=== PATIENT | female | born 1960 | race Caucasian/White ===

== ENCOUNTER 2019-01-07 18:33 | Emergency (ER) | payer OTHER ==
[~2019-01-07] VITALS: Ht 165.1 cm; Wt 68.0 kg
[2019-01-07] MEDS ORDERED: RESTORIL7.5 MG (18:57)
[2019-01-07] MEDS ORDERED: PROZAC20 MG (18:57)
[2019-01-07] MEDS ORDERED: ZESTRIL10 M1 (18:57)
[2019-01-07] MEDS ORDERED: TRAZODONE HCL100 MG (18:58)
[2019-01-07] MEDS ORDERED: SEROQUEL200 MG (18:58)
[2019-01-07] MEDS ORDERED: VISTARIL25 MG (18:58)
[2019-01-07] MEDS ORDERED: CLONAZEPAM2 MG PO (21:49)
[2019-01-07] MEDS ORDERED: LISINOPRIL10 MG PO (21:49)
[2019-01-07] MEDS ORDERED: SKELAXIN800 MG PO (21:49)
[2019-01-07] MEDS ORDERED: VOLTAREN-XR100 MG PO (21:53)
== END 2019-01-07 21:57 ==
LOC: ER 18:33
DX: G43.119 Migraine with aura, intractable, without status migrainosus (principal); F41.1 Generalized anxiety disorder

== ENCOUNTER 2021-02-14 19:52 | Emergency (ER) | payer OTHER ==
[~2021-02-14] VITALS: Ht 165.1 cm; Wt 74.8 kg
[~2021-02-14 19:52] MED LIST: CLONAZEPAM2 MG PO; LISINOPRIL10 MG PO; PROZAC20 MG; RESTORIL7.5 MG; SEROQUEL200 MG; SKELAXIN800 MG PO; TRAZODONE HCL100 MG; VISTARIL25 MG; VOLTAREN-XR100 MG PO; ZESTRIL10 M1
[2021-02-14] MEDS ORDERED: PROZAC20 MG (20:04)
[2021-02-15] MEDS ORDERED: CIPRO500 MG PO (04:33)
[2021-02-15] MEDS ORDERED: PEPCID40 MG PO (04:33)
[2021-02-15] MEDS ORDERED: INTESTINEX680 M1 PO (04:33)
[2021-02-15] MEDS ORDERED: MOBIC15 MG PO (04:33)
== END 2021-02-15 04:58 | disposition home or self-care (01) ==
LOC: ER 19:52
DX: N39.0 Urinary tract infection, site not specified (principal); Z03.818 Encounter for observation for suspected exposure to other biological agents ruled out

== ENCOUNTER 2021-02-20 14:44 | Emergency (ER) | payer OTHER ==
[~2021-02-20] VITALS: Ht 165.1 cm; Wt 74.8 kg
[~2021-02-20 14:44] MED LIST changes: +CIPRO500 MG PO; +INTESTINEX680 M1 PO; +MOBIC15 MG PO; +PEPCID40 MG PO
== END 2021-02-20 17:17 | disposition home or self-care (01) ==
LOC: ER 14:44
DX: M54.89 Other dorsalgia (principal)

== ENCOUNTER 2021-10-08 15:20 | Emergency (ER) | payer OTHER ==
[~2021-10-08] VITALS: Ht 165.1 cm; Wt 65.3 kg
== END 2021-10-08 17:10 | disposition home or self-care (01) ==
LOC: ER 15:20
DX: M54.59 Other low back pain (principal)

== ENCOUNTER 2021-11-05 14:28 | Emergency (ER) | payer OTHER ==
[~2021-11-05] VITALS: Ht 165.1 cm; Wt 63.5 kg
== END 2021-11-05 16:33 | disposition home or self-care (01) ==
LOC: ER 14:28
DX: M62.838 Other muscle spasm (principal); M54.9 Dorsalgia, unspecified; V49.9XXA Car occupant (driver) (passenger) injured in unspecified traffic accident, initial encounter; Y93.9 Activity, unspecified; Y92.413 State road as the place of occurrence of the external cause; Y99.9 Unspecified external cause status

== ENCOUNTER 2021-11-21 12:45 | Emergency (ER) | payer OTHER ==
[~2021-11-21] VITALS: Ht 165.1 cm; Wt 64.9 kg
[2021-11-21] MEDS ORDERED: QUETIAPINE FUM400 MG PO (13:10)
[2021-11-21] MEDS ORDERED: CLONAZEPAM1 MG PO (13:11)
[2021-11-21] MEDS ORDERED: RESTORIL30 MG PO (13:11)
[2021-11-21] MEDS ORDERED: IBU800 MG PO (16:33)
[2021-11-21] MEDS ORDERED: CYCLOBENZAPRINE10 MG PO (16:33)
[2021-11-21] MEDS ORDERED: NORFLEX100MG PO (16:33)
== END 2021-11-21 18:22 | disposition home or self-care (01) ==
LOC: ER 12:45
DX: M54.50 Low back pain, unspecified (principal); Z88.8 Allergy status to other drugs, medicaments and biological substances

== ENCOUNTER 2022-02-22 06:38 | Emergency (ER) | payer OTHER ==
[~2022-02-22] VITALS: Ht 165.1 cm; Wt 63.5 kg
[~2022-02-22 06:38] MED LIST changes: +CLONAZEPAM1 MG PO; +CYCLOBENZAPRINE10 MG PO; +IBU800 MG PO; +NORFLEX100MG PO; +QUETIAPINE FUM400 MG PO; +RESTORIL30 MG PO
== END 2022-02-22 08:55 | disposition home or self-care (01) ==
LOC: ER 06:38
DX: M54.9 Dorsalgia, unspecified (principal); Z91.041 Radiographic dye allergy status

== ENCOUNTER 2022-04-14 12:44 | Emergency (ER) | payer OTHER ==
[~2022-04-14] VITALS: Ht 165.1 cm; Wt 65.8 kg
== END 2022-04-14 15:12 | disposition home or self-care (01) ==
LOC: ER 12:44
DX: S39.92XA Unspecified injury of lower back, initial encounter (principal); V49.9XXA Car occupant (driver) (passenger) injured in unspecified traffic accident, initial encounter; Y93.9 Activity, unspecified; Y92.9 Unspecified place or not applicable

== ENCOUNTER 2022-04-16 12:47 | Emergency (ER) | payer OTHER ==
[~2022-04-16] VITALS: Ht 165.1 cm; Wt 65.8 kg
== END 2022-04-16 17:42 | disposition home or self-care (01) ==
LOC: ER 12:47
DX: S93.402A Sprain of unspecified ligament of left ankle, initial encounter (principal); W18.30XA Fall on same level, unspecified, initial encounter; Y93.9 Activity, unspecified; Y92.9 Unspecified place or not applicable; Y99.9 Unspecified external cause status; Z88.8 Allergy status to other drugs, medicaments and biological substances

== ENCOUNTER 2022-05-12 10:46 | Emergency (ER) | payer OTHER ==
[~2022-05-12] VITALS: Ht 165.1 cm; Wt 63.5 kg
== END 2022-05-12 13:02 | disposition home or self-care (01) ==
LOC: ER 10:46
DX: S99.912A Unspecified injury of left ankle, initial encounter (principal); S49.91XA Unspecified injury of right shoulder and upper arm, initial encounter; X58.XXXA Exposure to other specified factors, initial encounter; Y93.9 Activity, unspecified; Y92.9 Unspecified place or not applicable; Y99.9 Unspecified external cause status; Z91.041 Radiographic dye allergy status

== ENCOUNTER 2022-06-04 10:27 | Emergency (ER) | payer OTHER ==
[~2022-06-04] VITALS: Ht 175.3 cm; Wt 58.1 kg
== END 2022-06-04 13:41 ==
LOC: ER 10:27
DX: M54.50 Low back pain, unspecified (principal); M54.9 Dorsalgia, unspecified; Z91.041 Radiographic dye allergy status

== ENCOUNTER 2022-06-23 12:07 | Emergency (ER) | payer OTHER ==
[~2022-06-23] VITALS: Ht 165.1 cm; Wt 63.5 kg
[2022-06-23] MEDS ORDERED: SEROQUEL50 MG PO (13:06)
== END 2022-06-23 16:41 | disposition home or self-care (01) ==
LOC: ER 12:07
DX: M75.91 Shoulder lesion, unspecified, right shoulder (principal)

== ENCOUNTER → 2023-07-04 | Emergency (ER) | payer OTHER ==
[~2023-07-04] VITALS: Ht 165.1 cm; Wt 65.8 kg
[~2023-07-04] MED LIST changes: +SEROQUEL50 MG PO
== END | disposition left against medical advice (07) ==
LOC: ER 12:13
DX: Z53.21 Procedure and treatment not carried out due to patient leaving prior to being seen by health care provider (principal)

== ENCOUNTER 2023-11-28 18:22 | Emergency (ER) | payer OTHER ==
[~2023-11-28] VITALS: Ht 165.1 cm; Wt 65.3 kg
[2023-11-28] MEDS ORDERED: SEROQUEL200 MG PO (18:45)
[2023-11-28] MEDS ORDERED: RESTORIL30 M1 (18:45)
[2023-11-28] MEDS ORDERED: LIPITOR40 M1 PO (18:46)
[2023-11-28] MEDS ORDERED: DEXAMETHASONE SODIUM PHOSPHATE 4 MG/ML VIAL IM STA (22:51)
[2023-11-28] MEDS ORDERED: FAMOTIDINE/PF 20 MG/2 ML VIAL IV PUSH STA (22:53)
[2023-11-28] MEDS ORDERED: hydrOXYzine HCL 25 MG TABLET PO STA (22:55)
[2023-11-28 23:26] LABS: HEMATOCRIT 36.9 % (36.0-45.00); HEMOGLOBIN 12.9 g/dL (12.0-15.00); MEAN CELL VOLUME 89.5 fL (80.00-100.00); MEAN CORPUSCULAR HEMOGLOBIN 31.2 pg (27.00-32.0); MEAN CORPUSCULAR HGB CONC 34.9 g/dl (32.0-36.0); PLATELET COUNT 383 K/uL (150-450); RED BLOOD COUNT 4.12 M/uL (4.00-6.00); RED CELL DISTRIBUTION WIDTH 13.9 % (11.5-14.5)
[2023-11-28 23:32] LABS: INR 0.98; PROTHROMBIN TIME 10.3 SECONDS (9.0-11.5)
[2023-11-28 23:37] LABS: ALBUMIN 4.2 gm/dL (3.4-5.0); BILIRUBIN TOTAL 0.21 mg/dL (0.3-1.2); CALCIUM 9.5 mg/dL (8.5-10.1); CREATININE SERUM 0.85 mg/dL (0.55-1.02); GFR 67.33; GLOBULINA 4.4 G/DL (2.4-3.5); POTASSIUM 3.24 mEq/L (3.5-5.1); TOTAL PROTEIN 8.6 gm/dL (6.4-8.2)
[2023-11-29] MEDS ORDERED: MAG HYDROX/ALUMINUM HYD/SIMETH 30 ML BLIST.PACK PO ONE (02:15)
[2023-11-29] MEDS ORDERED: LIDOCAINE HCL VISCOUS 20MG/ML BLIST 15ML MM ONE (02:15)
[2023-11-29] MEDS ORDERED: PROTONIX40 MG PO (02:22)
[2023-11-29] MEDS ORDERED: PEPCID40 MG PO (02:22)
[2023-11-29] MEDS ORDERED: CARAFATE1 GM/10 ML PO (02:22)
== END 2023-11-29 02:32 ==
LOC: ER 18:23
PROVIDERS: General Practice
DX: R04.2 Hemoptysis (principal); Z88.2 Allergy status to sulfonamides; Z88.8 Allergy status to other drugs, medicaments and biological substances; Z87.891 Personal history of nicotine dependence

== ENCOUNTER 2024-05-25 18:49 | Inpatient (IN) | payer OTHER ==
[~2024-05-25] VITALS: Ht 165.1 cm; Wt 65.8 kg
[~2024-05-25 18:49] MED LIST changes: +CARAFATE1 GM/10 ML PO; +LIPITOR40 M1 PO; +PROTONIX40 MG PO; +RESTORIL30 M1; +SEROQUEL200 MG PO
[2024-05-25] MEDS ORDERED: KETOROLAC TROMETHAMINE 60 MG VIAL IM ONE ×2 (21:00→21:23)
[2024-05-25] MEDS ORDERED: CEFTRIAXONE SODIUM 2,000 MG VIAL IV ONE (21:15)
[2024-05-25] MEDS ORDERED: CEFTRIAXONE SODIUM 2,000 MG VIAL ONE (21:23)
[2024-05-25 22:31] LABS: HEMATOCRIT 38.2 % (36.0-45.00); HEMOGLOBIN 13.1 g/dL (12.0-15.00); MEAN CELL VOLUME 88.9 fL (80.00-100.00); MEAN CORPUSCULAR HEMOGLOBIN 30.5 pg (27.00-32.0); MEAN CORPUSCULAR HGB CONC 34.3 g/dl (32.0-36.0); PLATELET COUNT 368 K/uL (150-450); RED CELL DISTRIBUTION WIDTH 14.5 % (11.5-14.5)
[2024-05-25 22:59] LABS: ALBUMIN 4.2 gm/dL (3.4-5.0); BILIRUBIN TOTAL 0.32 mg/dL (0.3-1.2); CALCIUM 9.6 mg/dL (8.5-10.1); CREATININE SERUM 0.85 mg/dL (0.55-1.02); GFR 67.12; POTASSIUM 3.86 mEq/L (3.5-5.1); TOTAL PROTEIN 8.2 gm/dL (6.4-8.2)
[2024-05-26] MEDS ORDERED: VANCOMYCIN HCL 1,000 MG VIAL IV SCH ×2 (00:37→09:00)
[2024-05-26] MEDS ORDERED: TEMAZEPAM 15 MG CAPSULE PO SCH (00:45)
[2024-05-26] MEDS ORDERED: ACETAMINOPHEN 325 MG TABLET PO PRN (00:45)
[2024-05-26] MEDS ORDERED: KETOROLAC TROMETHAMINE 30 MG VIAL IU PRN (01:45)
[2024-05-26] MEDS ORDERED: VANCOMYCIN HCL 1,000 MG VIAL ONE (04:03)
[2024-05-26 08:07] VITALS: BP 155/64; O2SAT 100
[2024-05-26 08:07] LABS: INR 0.96; PARTIAL THROMBOPLASTIN TIME 29.1 SECONDS (22.0-34.0); PROTHROMBIN TIME 10.5 SECONDS (9.0-11.5)
[2024-05-26] MEDS ORDERED: FLUOXETINE HCL 20 MG CAPSULE PO SCH (09:00)
[2024-05-26] MEDS ORDERED: FAMOTIDINE/PF 20 MG/2 ML VIAL IV SCH (09:00)
[2024-05-26] MEDS ORDERED: CEFTRIAXONE SODIUM 2,000 MG in DEXTROSE 5 % IN WATER 100 ML IV SCH (09:00)
[2024-05-26 13:41] VITALS: BP 150/85; O2SAT 98
[2024-05-26 17:41] VITALS: BP 150/72; O2SAT 98
[2024-05-26] MEDS ORDERED: VANCOMYCIN HCL 5 MG/ML REDILUIDO IV SCH (21:00)
[2024-05-27 03:06] VITALS: BP 150/71; O2SAT 98
[2024-05-27 09:07] VITALS: BP 118/61; O2SAT 98
[2024-05-27 16:55] VITALS: BP 135/69; O2SAT 97
[2024-05-28 03:06] VITALS: BP 138/74; O2SAT 97
[2024-05-28] MEDS ORDERED: CEFTRIAXONE SODIUM 2,000 MG VIAL ONE (08:22)
[2024-05-28 11:21] VITALS: BP 140/74
[2024-05-28 18:47] VITALS: BP 149/85
[2024-05-29 02:51] VITALS: BP 153/80; O2SAT 95
[2024-05-29 09:42] VITALS: BP 130/66; O2SAT 96
== END 2024-05-29 15:17 | disposition home or self-care (01) | DRG 603 ==
LOC: ER 18:52 → SEC-K 05-26 02:54 → MEDJ 05-26 02:54
PROVIDERS: General Practice; Preventive Medicine Public Health & General Preventive Medicine; ADMIT Internal Medicine; ATTEND Internal Medicine
PROC: B44GZZZ Ultrasonography of Left Lower Extremity Arteries (ICD-10-PCS; principal; 2024-05-26)
DX: L02.416 Cutaneous abscess of left lower limb (principal); B95.61 Methicillin susceptible Staphylococcus aureus infection as the cause of diseases classified elsewhere; B96.89 Other specified bacterial agents as the cause of diseases classified elsewhere; L03.116 Cellulitis of left lower limb

== ENCOUNTER 2024-07-23 14:24 | Emergency (ER) | payer OTHER ==
[~2024-07-23] VITALS: Ht 165.1 cm; Wt 67.1 kg
[2024-07-23] MEDS ORDERED: MOTRIN IB200 M1 PO (14:35)
[2024-07-23] MEDS ORDERED: AMOXIL PO (14:36)
[2024-07-23] MEDS ORDERED: CLINDAMYCIN PHOSPHATE 150 MG/ML (600mg) IV STA (15:37)
[2024-07-23] MEDS ORDERED: KETOROLAC TROMETHAMINE 30 MG VIAL IV STA (15:39)
[2024-07-23] MEDS ORDERED: DEXAMETHASONE SODIUM PHOSPHATE 4 MG/ML VIAL IM STA (15:46)
== END 2024-07-23 16:45 | disposition home or self-care (01) ==
LOC: ER 14:27
DX: K01.1 Impacted teeth (principal); Z88.2 Allergy status to sulfonamides; Z88.8 Allergy status to other drugs, medicaments and biological substances
CPT/HCPCS: 96365; 96372; 99282; J1100; J1885; J3490

== ENCOUNTER 2024-11-02 21:30 | Emergency (ER) | payer OTHER ==
[~2024-11-02] VITALS: Ht 165.1 cm; Wt 65.8 kg
[~2024-11-02 21:30] MED LIST changes: +AMOXIL PO; +MOTRIN IB200 M1 PO
[2024-11-03] MEDS ORDERED: MORPHINE SULFATE 4 MG/ML VIAL IV STA (00:29)
[2024-11-03] MEDS ORDERED: 0.9 % SODIUM CHLORIDE 1,000 ML IV STA (00:29)
[2024-11-03] MEDS ORDERED: HYOSCYAMINE SULFATE 0.125 MG TAB.SUBL SL ONE (00:30)
[2024-11-03] MEDS ORDERED: HYOSCYAMINE SULFATE 0.125 MG TAB.SUBL ONE (00:31)
[2024-11-03] MEDS ORDERED: ONDANSETRON HCL 2 MG/ML VIAL ONE (00:55)
[2024-11-03 01:21] LABS: INR 1.02; PROTHROMBIN TIME 11.1 SECONDS (9.0-11.5)
[2024-11-03 01:23] LABS: PARTIAL THROMBOPLASTIN TIME < 20.0 SECONDS (22.0-34.0)
[2024-11-03 01:27] LABS: ALBUMIN 3.6 gm/dL (3.4-5.0); BILIRUBIN TOTAL 0.17 mg/dL (0.3-1.2); CALCIUM 9.5 mg/dL (8.5-10.1); CREATININE SERUM 0.79 mg/dL (0.55-1.02); GFR 73.04; GLOBULINA 3.7 G/DL (2.4-3.5); POTASSIUM 4.77 mEq/L (3.5-5.1); TOTAL PROTEIN 7.3 gm/dL (6.4-8.2)
[2024-11-03 02:19] LABS: BASO % 0.5 % (0.1-1.2); EOS # 0.11 (0.04-0.54); EOS % 1.9 % (0.7-7.0); HEMATOCRIT 34.8 % (34.1-44.9); HEMOGLOBIN 11.5 g/dL (11.2-15.7); LYMPH % 45.9 % (19.3-53.1); MEAN CORPUSCULAR HEMOGLOBIN 29.9 pg (25.6-32.2); MONO # 0.54 (0.24-0.82); MONO % 9.5 % (4.7-12.5); NEUT # 2.39 (1.56-6.13); NEUT % 42.2 % (34.0-71.1); PLATELET COUNT 269 K/uL (163-369); RED BLOOD COUNT 3.85 M/uL (3.93-5.22); RED CELL DISTRIBUTION WIDTH 13.5 % (11.6-14.4)
== END 2024-11-03 05:06 | disposition home or self-care (01) ==
LOC: ER 23:08
DX: R10.32 Left lower quadrant pain (principal); N20.0 Calculus of kidney; Z88.2 Allergy status to sulfonamides; Z88.8 Allergy status to other drugs, medicaments and biological substances
CPT/HCPCS: 36415; 74176; 96365; 96366; 99283; J2270; J3490

== ENCOUNTER 2024-12-09 12:53 | Emergency (ER) | payer OTHER ==
[~2024-12-09] VITALS: Ht 167.6 cm; Wt 68.0 kg
[2024-12-09] MEDS ORDERED: RESTORIL15 MG (13:00)
[2024-12-09] MEDS ORDERED: BUSPIRONE HCL5 MG (13:00)
[2024-12-09] MEDS ORDERED: KETOROLAC TROMETHAMINE 60 MG VIAL IM STA (13:41)
[2024-12-09] MEDS ORDERED: DEXAMETHASONE SODIUM PHOSPHATE 4 MG/ML VIAL IM STA (13:42)
[2024-12-09] MEDS ORDERED: ONDANSETRON HCL 2 MG/ML VIAL IM STA (13:43)
[2024-12-09] MEDS ORDERED: BUTALB/ACETAMINOPHEN/CAFFEINE 1 TAB TABLET PO STA (13:45)
[2024-12-09] MEDS ORDERED: BUTALB/ACETAMINOPHEN/CAFFEINE 1 TAB TABLET PO ONE (14:05)
[2024-12-09] MEDS ORDERED: DEXAMETHASONE SODIUM PHOSPHATE 4 MG/ML VIAL ONE (14:06)
[2024-12-09] MEDS ORDERED: KETOROLAC TROMETHAMINE 60 MG VIAL IM ONE (14:06)
[2024-12-09] MEDS ORDERED: ONDANSETRON HCL 2 MG/ML VIAL ONE (14:07)
== END 2024-12-09 14:32 | disposition home or self-care (01) ==
LOC: ER 12:53
DX: G44.209 Tension-type headache, unspecified, not intractable (principal); Z88.2 Allergy status to sulfonamides; Z91.041 Radiographic dye allergy status

== ENCOUNTER 2025-01-18 13:35 | Emergency (ER) | payer OTHER ==
[~2025-01-18] VITALS: Ht 165.1 cm; Wt 70.3 kg
[~2025-01-18 13:35] MED LIST changes: +BUSPIRONE HCL5 MG; +RESTORIL15 MG
[2025-01-18] MEDS ORDERED: KETOROLAC TROMETHAMINE 60 MG VIAL IM ONE ×2 (15:59→16:00)
== END 2025-01-18 17:01 | disposition home or self-care (01) ==
LOC: ER 13:35
DX: S93.492A Sprain of other ligament of left ankle, initial encounter (principal); Z87.81 Personal history of (healed) traumatic fracture; Z88.2 Allergy status to sulfonamides; Z91.041 Radiographic dye allergy status

== ENCOUNTER 2025-01-26 06:31 | Emergency (ER) | payer OTHER ==
[~2025-01-26] VITALS: Ht 165.1 cm; Wt 68.0 kg
[2025-01-26] MEDS ORDERED: PROZAC10 MG PO (06:39)
[2025-01-26] MEDS ORDERED: TENCON 50-3251 EACH PO (06:40)
[2025-01-26] MEDS ORDERED: KETOROLAC TROMETHAMINE 60 MG VIAL IM ONE (08:45)
[2025-01-26] MEDS ORDERED: ORPHENADRINE CITRATE 30 MG/ML AMPUL IM ONE (08:45)
== END 2025-01-26 09:09 | disposition home or self-care (01) ==
LOC: ER 06:31
DX: M62.830 Muscle spasm of back (principal); Z88.2 Allergy status to sulfonamides
CPT/HCPCS: 96372; 99282; J1885; J2360

== ENCOUNTER 2025-02-26 06:00 | Day surgery (SDC) | payer OTHER ==
[2025-02-21 12:18] LABS: URINE APPEARANCE Cloudy; URINE BILIRRUBIN Negative (NEGATIVE); URINE BLOOD Negative; URINE COLOR Yellow; URINE GLUCOSE Negative (NEGATIVE); URINE KETONE Negative (NEGATIVE); URINE LEUKOCYTE Small; URINE NITRATE Negative; URINE PROTEIN Negative (NEGATIVE); URINE UROBILINOGEN 0.2 E.U./dl
[2025-02-21 12:19] LABS: BASO % 0.7 % (0.1-1.2); EOS # 0.19 (0.04-0.54); EOS % 4.4 % (0.7-7.0); LYMPH # 1.80 (1.18-3.74); LYMPH % 41.7 % (19.3-53.1); MEAN PLATELET VOLUME 10.50 fl (9.4-12.4); MONO # 0.44 (0.24-0.82); MONO % 10.2 % (4.7-12.5); NEUT # 1.85 (1.56-6.13); NEUT % 42.8 % (34.0-71.1); RED CELL DISTRIBUTION WIDTH 13.6 % (11.6-14.4)
[2025-02-21 12:22] LABS: URINE BACTERIA 1412.2 uL (0.0-1933); URINE EPITHELIAL CELLS 117.0 uL (0.0-38.8); URINE RBC 2.3 uL (0.0-20.8); URINE WBC 70.7 uL (0.0-23.2)
[2025-02-21 12:36] LABS: INR 0.98
[2025-02-21 12:41] LABS: URINE CAST 0.58 uL (0.0-1.40)
[2025-02-21 12:57] LABS: ALT/SGPT 14.0 U/L (12-78); AST/SGOT 14.0 U/L (15-37); BILIRUBIN TOTAL 0.28 mg/dL (0.3-1.2); BUN CREA RATIO 18.0 (7.0-25.0); CREATININE SERUM 0.93 mg/dL (0.55-1.02); GFR 60.32; GLOBULINA 3.2 G/DL (2.4-3.5); GLUCOSE FASTING 99.0 mg/dL (65-100); OSMOLALITY SERUM 283.0 MOSM/KG (275-295)
[2025-02-21 12:58] VITALS: BP 147/64
[~2025-02-26] VITALS: Ht 165.1 cm; Wt 68.0 kg
[~2025-02-26 06:00] MED LIST changes: +GEMFIBROZIL600 MG PO; +LYRICA50 MG PO; +PROZAC10 MG PO; +TENCON 50-3251 EACH PO
[2025-02-26] MEDS ORDERED: CEFTRIAXONE SODIUM 2,000 MG VIAL ONE (07:19)
[2025-02-26] MEDS ORDERED: METRONIDAZOLE/SODIUM CHLORIDE 500 MG/100 ML PIGGYBACK IV ONE (07:19)
[2025-02-26] MEDS ORDERED: HEMOSTATIC MATRIX 1 KIT KIT TOP ONE (07:23)
[2025-02-26] MEDS ORDERED: BUPIVACAINE HCL/Mpf 0.5% 10ML VIAL ONE (07:23)
[2025-02-26] MEDS ORDERED: DIBUCAINE 30 GM TUBE ONE (07:23)
[2025-02-26] MEDS ORDERED: CHLORHEXIDINE GLUCONATE 120 ML BOTTLE TOP ONE (07:24)
[2025-02-26] MEDS ORDERED: LIDOCAINE HCL 1%/EPINEPHRINE 20ML VIAL IJ ONE (08:15)
[2025-02-26] MEDS ORDERED: INTESTINEX680 M1 PO (08:37)
[2025-02-26] MEDS ORDERED: PERCOCET 5-3251 EACH PO (08:37)
[2025-02-26] MEDS ORDERED: NEURONTIN300 MG PO (08:37)
[2025-02-26] MEDS ORDERED: CELECOXIB200 MG PO (08:37)
== END 2025-02-26 12:40 | disposition home or self-care (01) ==
LOC: CIR.AMB 06:00
PROVIDERS: ATTEND Surgery
DX: K64.3 Fourth degree hemorrhoids (principal); K62.5 Hemorrhage of anus and rectum; Z88.2 Allergy status to sulfonamides; Z91.041 Radiographic dye allergy status